=== PATIENT | female | born 1980 | race Hispanic/Latino ===

== ENCOUNTER 2016-12-13 17:43 | Emergency (ER) | payer OTHER ==
[~2016-12-13] VITALS: Ht 154.9 cm; Wt 47.0 kg
[2016-12-13] MEDS ORDERED: LO LOESTRIN PO (17:55)
[2016-12-13 19:15] VITALS: BP 120/77
== END 2016-12-13 19:15 | disposition home or self-care (01) | DRG 951 ==
LOC: ED 17:43
DX: Z20.818 Contact with and (suspected) exposure to other bacterial communicable diseases (principal)